=== PATIENT | male | born 1985 | race African-American/Black ===

== ENCOUNTER 2017-09-20 08:38 | Emergency (ER) | payer OTHER ==
[2017-09-20 08:43] VITALS: TEMP 98.6
[2017-09-20] MEDS ORDERED: ALBUTEROL0.083 % IN (08:57)
[2017-09-20] MEDS ORDERED: GABA300C2 PO (08:58)
[2017-09-20] MEDS ORDERED: ALBU90AE13 INH (08:58)
[2017-09-20] MEDS ORDERED: PHEN50CH2 PO (08:58)
[2017-09-20 09:45] LABS: PLATELET COUNT 202 K/uL (142-355)
[2017-09-20 09:54] LABS: POTASSIUM 4.5 mmol/L (3.6-5.2)
[2017-09-20 10:38] VITALS: BP 104/64
== END 2017-09-20 10:39 | disposition home or self-care (01) ==
LOC: ED 08:38
PROVIDERS: Family Medicine
DX: J41.0 Simple chronic bronchitis (principal); J02.9 Acute pharyngitis, unspecified
CPT/HCPCS: 36415; 80053; 85027; 87081; 87880; 99283

== ENCOUNTER 2019-07-08 09:42 | Emergency (ER) | payer OTHER ==
[~2019-07-08] VITALS: Ht 175.3 cm; Wt 60.8 kg
[~2019-07-08 09:42] MED LIST: ALBU90AE13 INH; ALBUTEROL0.083 % IN; GABA300C2 PO; PHEN50CH2 PO
[2019-07-08 12:10] LABS: PLATELET COUNT 212 K/uL (142-355)
[2019-07-08 12:14] LABS: POTASSIUM 4.5 mmol/L (3.6-5.2)
[2019-07-08 13:18] VITALS: BP 110/70; TEMP 98.8
== END 2019-07-08 13:18 | disposition home or self-care (01) ==
LOC: ED 09:42
PROVIDERS: Family Medicine
DX: J45.901 Unspecified asthma with (acute) exacerbation (principal); Z03.818 Encounter for observation for suspected exposure to other biological agents ruled out; F17.210 Nicotine dependence, cigarettes, uncomplicated
CPT/HCPCS: 80053; 85027; 87635; 99283; J1885; J2930; U0002

== ENCOUNTER 2020-02-09 16:13 | Emergency (ER) | payer OTHER ==
[~2020-02-09] VITALS: Ht 175.3 cm; Wt 60.8 kg
[2020-02-09 16:47] VITALS: TEMP 98.7
[2020-02-09 17:10] LABS: PLATELET COUNT 217 K/uL (142-355)
[2020-02-09 17:18] LABS: POTASSIUM 4.1 mmol/L (3.6-5.2)
[2020-02-09 21:24] VITALS: BP 123/72
== END 2020-02-09 21:24 | disposition home or self-care (01) ==
LOC: ED 16:13
PROVIDERS: Hospitalist
DX: R10.84 Generalized abdominal pain (principal); R11.2 Nausea with vomiting, unspecified; R56.9 Unspecified convulsions; R19.7 Diarrhea, unspecified
CPT/HCPCS: 36415; 80053; 80185; 81000; 82150; 83690; 85027; 96360; 96375; 99284; J1170; J1885; J2405